=== PATIENT | male | born 1995 | race Caucasian/White ===

== ENCOUNTER 2017-11-29 20:02 | Inpatient (IN) | payer OTHER ==
[~2017-11-29] VITALS: Ht 177.8 cm; Wt 68.0 kg
[2017-11-29 23:30] VITALS: BP 129/76
[2017-11-29] MEDS ORDERED: BUPRENORPHINE HCL 2 MG TAB.SUBL SL PRN (23:30)
[2017-11-29] MEDS ORDERED: ONDANSETRON ODT 4 MG TAB.RAPDIS SL PRN (23:30)
[2017-11-29] MEDS ORDERED: ACETAMINOPHEN 325 MG TABLET PO PRN (23:30)
[2017-11-29] MEDS ORDERED: MAG HYDROX/AL HYDROX/SIMETH 30 ML LIQUID UDC PO PRN (23:30)
[2017-11-29] MEDS ORDERED: MIRALAX 17 GM POWD.PACK PO PRN (23:30)
[2017-11-29] MEDS ORDERED: LORAZEPAM 2 MG/1 ML VIAL IM PRN (23:30)
[2017-11-29] MEDS ORDERED: IBUPROFEN 600 MG TABLET PO PRN (23:30)
[2017-11-29] MEDS ORDERED: MAGNESIUM HYDROXIDE 30 ML LIQUID UDC PO PRN (23:30)
[2017-11-29] MEDS ORDERED: ONDANSETRON 4 MG/2 ML VIAL IM PRN (23:30)
[2017-11-29] MEDS ORDERED: HYDROXYZINE PAMOATE 25 MG CAPSULE PO PRN (23:30)
[2017-11-29] MEDS ORDERED: NICOTINE POLACRILEX 4 MG GUM-PK OF TEN BC PRN (23:30)
[2017-11-29] MEDS ORDERED: LOPERAMIDE HCL 2 MG CAPSULE PO PRN ×2 (23:30)
[2017-11-29] MEDS ORDERED: CLONIDINE HCL 0.1 MG TABLET PO PRN (23:30)
[2017-11-29] MEDS ORDERED: NICOTINE 14 MG/24HR PATCH TD PRN (23:30)
[2017-11-29 23:41] LABS: BASOPHILS % (AUTO) 0.2 % (0.0-2.0); EOSINOPHILS # (AUTO) 0.1 K/uL (0.0-0.7); EOSINOPHILS % (AUTO) 0.8 % (0.0-7.0); HEMATOCRIT 41.3 % (36.7-47.1); HEMOGLOBIN 14.5 g/dL (12.5-16.3); LYMPHOCYTES # (AUTO) 1.4 K/uL (20.0-40.0); LYMPHOCYTES % (AUTO) 12.8 % (20.5-51.5); MEAN CORPUSCULAR HEMOGLOBIN 30.1 uug (23.8-33.4); MEAN CORPUSCULAR HGB CONC 35 g/dL (32.5-36.3); MEAN CORPUSCULAR VOLUME 85.7 fL (73.0-96.2); MONOCYTES # (AUTO) 0.7 K/uL (2.0-10.0); MONOCYTES % (AUTO) 6.8 % (0.0-11.0); NEUTROPHILS # (AUTO) 8.6 K/uL (1.8-8.9); NEUTROPHILS % (AUTO) 79.4 % (38.5-71.5); PLATELET COUNT (AUTO) 258 K/uL (152-348); RED BLOOD CELL COUNT(AUTO) 4.82 MIL/uL (4.06-5.63); WHITE BLOOD COUNT (AUTO) 10.9 K/uL (3.6-10.2)
[2017-11-29 23:52] LABS: ALANINE AMINOTRANSFERASE 45 U/L (16-63); ALKALINE PHOSPHATASE 67 U/L (50-136); ASPARTATE AMINOTRANSFERASE 29 U/L (15-37); BILIRUBIN,TOTAL 0.4 mg/dL (0.2-1.0); CARBON DIOXIDE 33 mmol/L (21-32); CHLORIDE 103 mmol/L (98-107); CREATININE 0.9 mg/dL (0.6-1.3); ETHANOL < 3 MG/DL (0-0); GLUCOSE 81 mg/dL (74-106); MAGNESIUM 2.3 mg/dL (1.8-2.4); POTASSIUM 3.6 mmol/L (3.5-5.1); TOTAL PROTEIN, SERUM 7.7 g/dL (6.4-8.2); UREA NITROGEN, BLOOD 11 mg/dL (7-18)
[2017-11-29] MEDS ORDERED: LORAZEPAM 1 MG TABLET PO ONE (23:55)
[2017-11-30 00:05] LABS: *AMPHETAMINE, URINE NEGATIVE (NEGATIVE); *BARBITURATE, URINE NEGATIVE (NEGATIVE); *CANNABINOID, URINE NEGATIVE (NEGATIVE); *COCCAINE, URINE NEGATIVE (NEGATIVE); *OPIATE, URINE POSITIVE (NEGATIVE); *PHENCYCLIDINE SCREEN,URINE NEGATIVE (NEGATIVE)
[2017-11-30] MEDS ORDERED: QUET50TA PO (00:27)
[2017-11-30] MEDS ORDERED: BUPR1FIL SL (00:27)
[2017-11-30] MEDS ORDERED: MIRT15TA PO (00:27)
[2017-11-30] MEDS ORDERED: FINA1TAB PO (00:27)
[2017-11-30 00:31] LABS: THYROID STIMULATING HORMONE 1.154 mIU/mL (0.358-3.740)
[2017-11-30 00:40] VITALS: BP 117/66
[2017-11-30 04:15] VITALS: BP 114/76
[2017-11-30 08:00] VITALS: BP 116/76
[2017-11-30] MEDS: GABAPENTIN 300 MG CAPSULE PO SCH ×2 (08:36→20:06)
[2017-11-30] MEDS: DICYCLOMINE HCL 20 MG TABLET PO PRN (08:36)
[2017-11-30] MEDS: METHOCARBAMOL 750 MG TABLET PO PRN (08:36)
[2017-11-30] MEDS: LORAZEPAM 1 MG TABLET PO PRN ×3 (08:36→20:08)
[2017-11-30] MEDS: BUPRENORPHINE HCL 2 MG TAB.SUBL SL SCH ×3 (08:37→20:06)
[2017-11-30] MEDS: TUBERCULIN,PURIF.PROT.DERIV. 5 TU/0.1 ML TEST ID ONE ×2 (08:38→08:44)
[2017-11-30] MEDS: PATIENT MAY USE OWN MED- MD OK PO SCH (10:46)
[2017-11-30 12:00] VITALS: BP 124/74
[2017-11-30 16:00] VITALS: BP 135/84
[2017-11-30 20:01] VITALS: BP 122/88
[2017-11-30] MEDS: QUETIAPINE FUMARATE 25 MG TABLET PO SCH (20:06)
[2017-11-30] MEDS: MIRTAZAPINE 15 MG TABLET PO SCH (20:06)
[2017-12-01 00:48] VITALS: BP 118/72
[2017-12-01 08:00] VITALS: BP 123/61
[2017-12-01] MEDS: METHOCARBAMOL 750 MG TABLET PO PRN (08:05)
[2017-12-01] MEDS: GABAPENTIN 300 MG CAPSULE PO SCH ×2 (08:05→20:29)
[2017-12-01] MEDS: DICYCLOMINE HCL 20 MG TABLET PO PRN (08:05)
[2017-12-01] MEDS: LORAZEPAM 1 MG TABLET PO PRN (08:06)
[2017-12-01] MEDS: PATIENT MAY USE OWN MED- MD OK PO SCH (08:15)
[2017-12-01] MEDS ORDERED: BUPRENORPHINE HCL 2 MG TAB.SUBL SL SCH (09:00)
[2017-12-01 12:00] VITALS: BP 119/77
[2017-12-01 12:07] LABS: HEPATITIS B SURFACE AG Negative (Negative)
[2017-12-01] MEDS ORDERED: LORAZEPAM 1 MG TABLET PO PRN ×2 (13:15)
[2017-12-01] MEDS: BUPRENORPHINE HCL 2 MG TAB.SUBL SL SCH ×2 (14:24→20:29)
[2017-12-01 16:00] VITALS: BP 135/74
[2017-12-01 20:00] VITALS: BP 116/80
[2017-12-01] MEDS: QUETIAPINE FUMARATE 25 MG TABLET PO SCH (20:29)
[2017-12-01] MEDS: MIRTAZAPINE 15 MG TABLET PO SCH (20:29)
[2017-12-01] MEDS: BACLOFEN 10 MG TABLET PO SCH (20:29)
[2017-12-02] VITALS: BP 129/67
[2017-12-02] MEDS: diphenhydrAMINE 50 MG CAPSULE PO PRN ×2 (00:16→20:59)
[2017-12-02] MEDS: BACLOFEN 10 MG TABLET PO SCH ×3 (09:24→20:56)
[2017-12-02] MEDS: GABAPENTIN 300 MG CAPSULE PO SCH ×3 (09:24→20:56)
[2017-12-02] MEDS: BUPRENORPHINE HCL 2 MG TAB.SUBL SL SCH ×3 (09:25→20:59)
[2017-12-02] MEDS: PATIENT MAY USE OWN MED- MD OK PO SCH (09:25)
[2017-12-02 09:28] VITALS: BP 108/65
[2017-12-02] MEDS ORDERED: KETOROLAC TROMETHAMINE 30 MG INJ IM PRN (11:45)
[2017-12-02] MEDS ORDERED: BUPRENORPHINE HCL 2 MG TAB.SUBL SL ONE (12:00)
[2017-12-02] MEDS: LIDOCAINE 5% PATCH TD SCH (12:14)
[2017-12-02 12:36] VITALS: BP 132/86
[2017-12-02] MEDS: ACETAMINOPHEN 325 MG TABLET PO SCH ×2 (14:13→20:58)
[2017-12-02 16:52] VITALS: BP 115/75
[2017-12-02 20:00] VITALS: BP 131/72
[2017-12-02] MEDS: MIRTAZAPINE 15 MG TABLET PO SCH (20:54)
[2017-12-02] MEDS: QUETIAPINE FUMARATE 25 MG TABLET PO SCH (20:55)
[2017-12-02] MEDS: CLONIDINE HCL 0.1 MG TABLET PO SCH (20:57)
[2017-12-03 08:00] VITALS: BP 116/68
[2017-12-03] MEDS ORDERED: TUBERCULIN,PURIF.PROT.DERIV. 5 TU/0.1 ML TEST ID ONE ×2 (09:00→10:45)
[2017-12-03] MEDS: BUPRENORPHINE HCL 2 MG TAB.SUBL SL SCH ×2 (09:17→20:39)
[2017-12-03] MEDS: ACETAMINOPHEN 325 MG TABLET PO SCH ×3 (09:17→20:40)
[2017-12-03] MEDS: BACLOFEN 10 MG TABLET PO SCH ×3 (09:17→20:41)
[2017-12-03] MEDS: PATIENT MAY USE OWN MED- MD OK PO SCH (09:17)
[2017-12-03] MEDS: GABAPENTIN 300 MG CAPSULE PO SCH ×3 (09:18→20:41)
[2017-12-03] MEDS: CLONIDINE HCL 0.1 MG TABLET PO SCH ×2 (09:18→20:43)
[2017-12-03] MEDS: LIDOCAINE 5% PATCH TD SCH (09:18)
[2017-12-03 12:00] VITALS: BP 98/68
[2017-12-03] MEDS ORDERED: FLUTICASONE PROP NASAL SPRAY 16 GM BOTTLE NS PRN (12:00)
[2017-12-03] MEDS ORDERED: PSEUDOEPHEDRINE HCL 30 MG TABLET PO PRN (12:00)
[2017-12-03 16:00] VITALS: BP 108/67
[2017-12-03 20:00] VITALS: BP_SYST 106; BP_SYST 99; BP_DIAS 51; BP_DIAS 66
[2017-12-03] MEDS: MIRTAZAPINE 15 MG TABLET PO SCH (20:40)
[2017-12-03] MEDS: QUETIAPINE FUMARATE 25 MG TABLET PO SCH (20:40)
[2017-12-04 08:00] VITALS: BP 100/65
[2017-12-04] MEDS: CLONIDINE HCL 0.1 MG TABLET PO SCH ×2 (08:47→20:27)
[2017-12-04] MEDS: LIDOCAINE 5% PATCH TD SCH (08:47)
[2017-12-04] MEDS: PATIENT MAY USE OWN MED- MD OK PO SCH (08:47)
[2017-12-04] MEDS: GABAPENTIN 300 MG CAPSULE PO SCH ×3 (08:47→20:26)
[2017-12-04] MEDS: BACLOFEN 10 MG TABLET PO SCH (08:47)
[2017-12-04] MEDS: ACETAMINOPHEN 325 MG TABLET PO SCH ×3 (08:48→20:27)
[2017-12-04] MEDS ORDERED: BUPRENORPHINE HCL 2 MG TAB.SUBL SL SCH (09:00)
[2017-12-04] MEDS ORDERED: METHYL SALICYLATE/MENTHOL CREAM 28 GM TUBE TOP PRN (10:45)
[2017-12-04 12:00] VITALS: BP 119/76
[2017-12-04] MEDS ORDERED: GABA-534 PO ×2 (13:13)
[2017-12-04] MEDS ORDERED: HYDR-3895 PO (13:13)
[2017-12-04] MEDS ORDERED: FLUT16SP NS (13:13)
[2017-12-04] MEDS ORDERED: IBUP-1955 PO (13:13)
[2017-12-04] MEDS ORDERED: BACL20TA PO (13:13)
[2017-12-04] MEDS ORDERED: ACET325T53 PO (13:13)
[2017-12-04] MEDS ORDERED: CLON0.1T14 PO (13:13)
[2017-12-04] MEDS ORDERED: DIPH50CA37 PO (13:13)
[2017-12-04] MEDS ORDERED: LIDO30AD10 TD (13:13)
[2017-12-04] MEDS ORDERED: DICY20TA28 PO (13:13)
[2017-12-04] MEDS: BACLOFEN 20 MG TABLET PO SCH ×2 (14:17→20:28)
[2017-12-04 16:00] VITALS: BP 117/70
[2017-12-04 20:00] VITALS: BP 126/72
[2017-12-04] MEDS: QUETIAPINE FUMARATE 25 MG TABLET PO SCH (20:25)
[2017-12-04] MEDS: MIRTAZAPINE 15 MG TABLET PO SCH (20:29)
[2017-12-05 08:00] VITALS: BP 100/60
[2017-12-05] MEDS: LIDOCAINE 5% PATCH TD SCH (08:30)
[2017-12-05] MEDS: BACLOFEN 20 MG TABLET PO SCH (08:30)
[2017-12-05] MEDS: ACETAMINOPHEN 325 MG TABLET PO SCH (08:30)
[2017-12-05] MEDS: GABAPENTIN 300 MG CAPSULE PO SCH (08:30)
[2017-12-05] MEDS: PATIENT MAY USE OWN MED- MD OK PO SCH (08:31)
[2017-12-05] MEDS: CLONIDINE HCL 0.1 MG TABLET PO SCH (08:31)
== END 2017-12-05 09:40 | disposition other institution (70) | DRG 895 ==
LOC: SRC 22:41
PROVIDERS: ADMIT Internal Medicine; ATTEND Internal Medicine
PROC: HZ2ZZZZ Detoxification Services for Substance Abuse Treatment (ICD-10-PCS; principal; 2017-11-29)
PROC: HZ41ZZZ Group Counseling for Substance Abuse Treatment, Behavioral (ICD-10-PCS; 2017-11-30)
PROC: HZ31ZZZ Individual Counseling for Substance Abuse Treatment, Behavioral (ICD-10-PCS; 2017-12-02)
DX: F11.23 Opioid dependence with withdrawal (principal); E87.3 Alkalosis; F33.1 Major depressive disorder, recurrent, moderate; F41.9 Anxiety disorder, unspecified; Z82.49 Family history of ischemic heart disease and other diseases of the circulatory system; G47.00 Insomnia, unspecified; E86.0 Dehydration; F17.210 Nicotine dependence, cigarettes, uncomplicated; F12.90 Cannabis use, unspecified, uncomplicated; F13.10 Sedative, hypnotic or anxiolytic abuse, uncomplicated; J00 Acute nasopharyngitis [common cold]
CPT/HCPCS: 36415; 70030-TC; 80307; 80346; 80361; 83735; 84443; 85025; 86403; 86580; 86592; 86705; 86803; 87070; 87340; 87806; G0480; J2405; J3535; Q0162; Q0163